=== PATIENT | male | born 1960 | race Caucasian/White ===

== ENCOUNTER 2017-06-06 18:46 | Inpatient (IN) | payer OTHER ==
[2017-06-06] MEDS ORDERED: HEPARIN 10,000 UNIT/10 ML MDV (1,000 UNIT/ML) IVP ONE (19:20)
[2017-06-06] MEDS ORDERED: HEPARIN/DEXTROSE 500 ML IV ONE (19:20)
--- NOTE | 2017-06-06 19:25 | EDPHY ---
H & P Stated Complaint: States +DVT in L leg; US done today HPI/ROS: Chief complaint: Left leg DVT History of present illness: This is a 56-year-old male who was sent to the emergency department by his primary care doctor for a left leg DVT. Patient has had soreness the last few days. However discomfort in the left leg significantly worsened today and he developed swelling in the leg. Ultrasound was obtained by his doctor which showed an extensive DVT that might be amenable to IR thrombolytic intervention. He was sent here for admission. On my evaluation he is feeling better, he feels like the pain in the leg and the swelling has decreased. He denies other associated signs or symptoms including no fevers, no cough, no trouble breathing, no chest pain. He denies precipitating factors for the blood clot. Review of systems: A 10 point review of systems was obtained and other than described above was negative - Personal History Current Tetanus Diphtheria and Acellular Pertussis (TDAP): Yes - Medical/Surgical History Hx Cardiac Disease: Yes Other PMH: afib. PUD in past - Social History Smoking Status: Never smoked - Physical Exam Exam: General Appearance: Alert, no distress. Eyes: Pupils equal and round no pallor or injection. ENT, Mouth: Mucous membranes moist. Respiratory: There are no retractions, lungs are clear to auscultation. Cardiovascular: Regular rate and rhythm. DP and PT pulses 2+. Gastrointestinal: Abdomen is soft and non tender, no masses, bowel sounds normal. Neurological: Alert and oriented x4. Strength and sensation intact and symmetrical. Skin: Warm and dry, no rashes. Musculoskeletal: Minor edema left leg compared to the right. Psychiatric: Patient is oriented X 3, there is no agitation. Constitutional: Initial Vital Signs Temperature (C) 36.8 C 06/06/17 18:53 Heart Rate 77 06/06/17 18:53 Respiratory Rate 16 06/06/17 18:53 Blood Pressure 163/99 H 06/06/17 18:53 O2 Sat (%) 98 06/06/17 18:53 O2 Delivery Mode Room Air Allergies/Adverse Reactions: No Known Allergies Allergy (Unverified 06/06/17 18:58) Home Medications: Medication Instructions Recorded Omeprazole [Prilosec 20 mg] 20 mg PO DAILY 06/06/17 buPROPion XL [Wellbutrin Xl] 150 mg PO DAILY 06/06/17 Medical Decision Making - Diagnostics Imaging: Discussed imaging studies w/ call center support consultant Radiologist ED Course/Re-evaluation: Patient seen under the supervision of my secondary supervising physician Dr. Maribell Dietrich. Patient presents to the emergency department for a left leg DVT. His leg is neurovascularly intact. Blood studies are obtained, PTT is noted to be elevated for unclear reasons. I have talked with the hospitalist Dr. Kraft. He will admit the patient. He wants me to go ahead and start heparin. I have consulted with interventional radiology Dr. Allen Ignacio. She will see the patient in the morning and discuss if intervention is warranted, she is not sure it will need to be but will evaluate the patient. The plan has been discussed with the patient who voiced understanding and agreement with it. Differential Diagnosis: Included but not limited to superficial thrombophlebitis, DVT, pulmonary embolism - Data Points Laboratory Results: Laboratory Results 06/06/17 19:25 06/06/17 19:25 06/06/17 06/06/17 06/06/17 19:25 19:25 19:25 WBC 9.49 10^3/uL 10^3/uL (3.80-9.50) RBC 4.35 10^6/uL L 10^6/uL (4.40-6.38) Hgb 13.1 g/dL L g/dL (13.7-17.5) Hct 36.8 % L % (40.0-51.0) MCV 84.6 fL fL (81.5-99.8) MCH 30.1 pg pg (27.9-34.1) MCHC 35.6 g/dL g/dL (32.4-36.7) RDW 13.0 % % (11.5-15.2) Plt Count 204 10^3/uL 10^3/uL (150-400) MPV 8.7 fL fL (8.7-11.7) Neut % (Auto) 60.7 % % (39.3-74.2) Lymph % (Auto) 27.8 % % (15.0-45.0) [place] % (Auto) 6.5 % % (4.5-13.0) Eos % (Auto) 3.1 % % (0.6-7.6) Baso % (Auto) 0.6 % % (0.3-1.7) Nucleat RBC Rel Count 0.0 % % (0.0-0.2) Absolute Neuts (auto) 5.76 10^3/uL 10^3/uL (1.70-6.50) Absolute Lymphs (auto) 2.64 10^3/uL 10^3/uL (1.00-3.00) Absolute Monos (auto) 0.62 10^3/uL 10^3/uL (0.30-0.80) Absolute Eos (auto) 0.29 10^3/uL 10^3/uL (0.03-0.40) Absolute Basos (auto) 0.06 10^3/uL 10^3/uL (0.02-0.10) Absolute Nucleated RBC 0.00 10^3/uL 10^3/uL (0-0.01) Immature Gran % 1.3 % H % (0.0-1.1) Immature Gran # 0.12 10^3/uL H 10^3/uL (0.00-0.10) PT 13.3 SEC SEC (12.0-15.0) INR 0.99 (0.83-1.16) APTT 78.8 SEC H SEC (23.0-38.0) Sodium 138 mEq/L mEq/L (135-145) Potassium 4.0 mEq/L mEq/L (3.5-5.2) Chloride 105 mEq/L mEq/L (97-110) Carbon Dioxide 20 mEq/l L mEq/l (22-31) Anion Gap 13 mEq/L mEq/L (8-16) BUN 12 mg/dL mg/dL (7-23) Creatinine 0.8 mg/dL mg/dL (0.7-1.3) Estimated GFR > 60 Glucose 89 mg/dL mg/dL (70-100) Calcium 9.2 mg/dL mg/dL (8.5-10.4) Medications Given: Discontinued Medications Heparin Sodium (Porcine) (Heparin Injection) 0 unit IVP EDNOW ONE PRN Reason: Protocol Stop: 06/06/17 19:21 Last Admin: 06/06/17 21:14 Dose: 5,200 units Heparin Sodium (Porcine) (Heparin 50 Units/Ml (Premix)) 500 mls @ 0 mls/hr IV EDNOW ONE; Per Protocol PRN Reason: Protocol Stop: 06/06/17 19:21 Last Admin: 06/06/17 21:09 Dose: 500 mls Departure - Departure Disposition: [facility] Inpatient Acute Clinical Impression: DVT (deep venous thrombosis) Qualifiers: DVT location: lower extremity Affected thrombotic vein of extremity: unspecified vein of extremity Chronicity: acute Laterality: left Qualified Code( s): I82.402 - Acute embolism and thrombosis of unspecified deep veins of left lower extremity Condition: Good
[2017-06-06 19:31] LABS: PLATELET COUNT 204 10^3/uL (150-400)
[2017-06-06 19:54] LABS: INR 0.99 (0.83-1.16); PROTIME(PATIENT) 13.3 SEC (12.0-15.0)
[2017-06-06] MEDS ORDERED: ZOLPIDEM TARTRATE 5 MG TAB PO PRN (21:09)
[2017-06-06] MEDS ORDERED: ONDANSETRON DISINTEGRATING 4 MG TAB PO PRN (21:09)
[2017-06-06] MEDS ORDERED: LORazepam 0.5 MG TAB PO PRN (21:09)
[2017-06-06] MEDS ORDERED: HYDROCODONE/APAP 5/325 TAB PO PRN (21:09)
[2017-06-06] MEDS ORDERED: ACETAMINOPHEN 325 MG TAB PO PRN (21:09)
[2017-06-06] MEDS ORDERED: ALBUTEROL 60 PUFFS/8 GM MDI IH PRN (21:09)
[2017-06-06] MEDS ORDERED: ALBUTEROL 3 ML DEYVIAL IH PRN (21:09)
--- NOTE | 2017-06-06 22:14 | GHP ---
[f rep st] HISTORY AND PHYSICAL DATE OF ADMISSION: 06/06/2017 CHIEF COMPLAINT: Left leg swelling and pain and known DVT. HISTORY OF PRESENT ILLNESS: This is a 56-year-old male who 10 days ago went skiing without incident. 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 It persisted and became somewhat painful, and he went to his PCP, Dr. Marialuisa Erickson, who saw the swelling, ordered an ultrasound, and on ultrasound a DVT frank s been noted. During this 10-day interval and prior to it, he denies having shortness of breath, fever, dyspnea on exertion, or feeling weak, tired, or noting any palpitations or chest pain. He does note that for th e last 2-3 weeks he has had increased sinus drainage and having an increasing cough secondary to that , but the cough he feels is secondary to the sinus drainage and is not secondary to any deep lung iss ue. He reports he has had the sinus problem on and off for many years and thinks he should use a net i pot for the cough, but he has never seen an ENT or pulmonary physician. He has also never been louis gnosed with asthma, allergies. He does not smoke cigarettes and has no known pulmonary disease. Reg arding the DVT in his leg, he has no family history of a clotting disorder in his mother, father, or siblings. He also does not note any recent long car ride, plane travel, trauma to the leg, or surger y to the lower extremity. PAST MEDICAL HISTORY: Denies asthma, allergies, high blood pressure, diabetes. He does have the sin us drainage, which he has had on and off for many years, but it has never been diagnosed specifically . He does not note any seasonal variation in the problem. There is a history of persistent atrial f ibrillation greater than 10 years ago, and he is status post an ablation x2. The atrial fibrillation resolved, and he has not been on anticoagulation therapy since then. PAST SURGICAL HISTORY: He has had a hernia repair remotely and a tonsillectomy. He additionally had an ablation greater than 10 years ago secondary to persistent atrial fibrillation at the time. ALLERGIES: None. CURRENT MEDICATIONS: Omeprazole and bupropion XL. SOCIAL HISTORY: The gentleman is . Has 2 children. 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 Alcohol: He drinks 2-3 ounces of vodka a day, but notes that he can go several days without drinking without any adverse effects of shaking, weakness, and h as never had a problem stopping alcohol. Tobacco was none. FAMILY HISTORY: Negative. He has no history of coronary artery disease, bleeding disorder, or clott ing disorder. PHYSICAL EXAMINATION: GENERAL: This is a pleasant, alert gentleman. VITAL SIGNS: He has mild hype rtension initially. He has normal oxygenation at 98% on room air. He is afebrile and has a heart ra te in sinus rhythm on the monitor at 77. HEENT: His TMs are brown bilaterally. The tongue and bucca l mucosa are normal. Posterior oropharynx is clear without exudate, erythema, or swelling. Nasal pa ssages appear clear. Sinuses on palpation are nontender or swollen. NECK: Supple without signs of meningismus. LUNGS: Normal inspiratory excursion without splinting. No palpable chest wall tendern ess. Lungs are clear to percussion and auscultation. HEART: Singular S1 and physiologically split S2. No murmur, gallop, or rub. ABDOMEN: Normoactive bowel sounds. No masses, tenderness, organome kulwant. EXTREMITIES: Left lower extremity shows 1+ peripheral edema from approximately the ankle to t he mid and upper calf. The area is tender to deep palpation, but no palpable cord can be found. The re is no erythema or ascending lymphangitis or cellulitis. No nodes are noted in the left inguinal r egion. SKIN: Otherwise clear. LABORATORY: WBC is normal. Hemoglobin slightly low at 13.1. Coagulation shows a normal PT and INR, but his APTT is elevated at 78 and repeated 82.2. Chemistry panel is otherwise normal. Extremity venous study demonstrates there is an extensive occlusive deep venous thrombosis involving the left femoral vein, popliteal vein, and the paired posterior tibial and peroneal veins. The findings of his ultrasound were discussed with IR, and it was decided to review the matter in the morning. The discussion was with Dr. Brittney Ignacio. As thrombolytic therapy is not being considered, the gentleman will be admitted and placed on IV hepa rin. It remains to explain his elevated PTT as there appears to be no drug effect involved here. ASSESSMENT: 1. Left lower extremity extensive deep vein thrombosis without signs of a pulmonary embolus. Thromb olytic therapy is being contemplated, and IR will be consulted in the morning regarding the matter. In the meantime, he will be placed on a continuous heparin drip in light of the possibility of an int ervention being performed tomorrow. 2. History of atrial fibrillation and status post an ablation 10 years ago without history of any goodson bsequent rhythm disturbance. He notes that sometimes he can feel his heart pounding, but he does not believe it is irregular. In light of this history, I believe it is useful to place the gentleman on a apricot packer for the evening. It seems unlikely that he would have reverted to atrial fibrilla tion, and an episode of atrial fibrillation would not explain his left lower extremity deep vein thro mbosis per se. Despite that fact, it would be useful to have some period of monitoring to further ev aluate this matter. 3. An abnormal PTT. This finding cannot be explained. It is approximately twice normal and normall y could be elevated if he were taking oral anticoagulants, but he is not. Thus, I have no explanatio n for this, and perhaps hematology should be consulted as an outpatient if none can be found. 4. Cough with some sinus drainage. Recommended outpatient ENT for further evaluation. The gentleman will be admitted to observation status. Should thrombolytic therapy be necessary, then he can be changed to inpatient status. His code status is full. TIME: 50 minutes. /[id number]/MODL
--- NOTE | 2017-06-06 22:29 | CPEKG ---
Heart Rate: 67 RR Interval: 896 P-R Interval: 184 QRSD Interval: 90 QT Interval: 400 QTC Interval: 423 P [place]: 88 QRS [place]: 61 T Wave [place]: 41 EKG Severity - ABNORMAL ECG - EKG Impression: SINUS RHYTHM EKG Impression: MULTIPLE ATRIAL PREMATURE COMPLEXES Electronically Signed By: Debra Fields 07-Jun-2017 06:04:48
[2017-06-06] MEDS: buPROPion XL 150 MG TAB PO SCH (23:20)
[2017-06-07 03:13] LABS: PLATELET COUNT 204 10^3/uL (150-400)
[2017-06-07] MEDS: buPROPion XL 150 MG TAB PO SCH (07:47)
[2017-06-07] MEDS: PANTOPRAZOLE SODIUM 40 MG TAB PO SCH (07:47)
[2017-06-07] MEDS ORDERED: HEPARIN 10,000 UNIT/10 ML MDV (1,000 UNIT/ML) IVP PRN (11:05)
[2017-06-07] MEDS ORDERED: HEPARIN/DEXTROSE 500 ML IV SCH ×2 (11:15→18:30)
--- NOTE | 2017-06-07 12:43 | ASMTCMCOM ---
CM Note CM Note Notes: 56 year old male admitted for L leg DVT. He has a hx of Afib-Ablation 10 years ago. Given patient's age and abilities no discharge needs are anticipated. Date Signed: 06/07/2017 12:43 PM Electronically Signed By:Urvashi Salazar LCSW
[2017-06-07] MEDS ORDERED: FLUMAZENIL 0.5 MG/5 ML MDV IVP PRN (13:49)
[2017-06-07] MEDS ORDERED: fentaNYL 100 MCG/2 ML INJ IVP PRN ×2 (13:49→17:54)
[2017-06-07] MEDS ORDERED: NALOXONE HCL 0.4 MG/ML INJ IVP PRN ×2 (13:49→17:54)
[2017-06-07 14:24] LABS: INR 1.02 (0.83-1.16); PROTIME(PATIENT) 13.6 SEC (12.0-15.0)
--- NOTE | 2017-06-07 14:43 | PDPROPOC ---
Sedation Plan of Care Sedation Plan of Care: vital signs stable, mental status noted, patient educated of risks, benefits, alternatives, patient can tolerate sedation ASA Classification: ASA 2 Planned drugs: fentanyl Mallampati Score: Class 3 Mallampati Reference Image: Patient passed 3-3-2 rule?: Yes
--- NOTE | 2017-06-07 14:47 | SOAPPROG ---
SOAP Progress Note Assessment/Plan: Assessment: LLE DVT, which by US does not involve CFV. Valve likely preserved. This is concordant with mild clinical presentation. Plan: We discussed in detail his options. Systemic anticoagulation likely will provide equal benefit to aggressive management. However, patient would like to optimize his chances and proceed with catheter lysis. Risks explained. I also explained that exact % of benefit is unknown considering preservation of valve. Patient understands all information discussed. We will start lysis today. finish tomorrow. Patient should wear knee height medical grade compression stockings once discharged. 06/07/17 14:47 Subjective: visited with patient. symptoms have improved since he's been supine. Objective: Vital Signs Temp Pulse Resp BP Pulse Ox 36.7 C 74 18 118/73 98 06/07/17 07:48 06/07/17 07:48 06/07/17 07:48 06/07/17 07:48 06/07/17 07:48 Laboratory Results 06/07/17 03:00 06/07/17 03:00 06/06/17 06/07/17 06/08/17 05:59 05:59 05:59 Intake Total 200 Output Total 620 Balance -420 PT 13.6 SEC (12.0-15.0) 06/07/17 14:05 INR 1.02 (0.83-1.16) 06/07/17 14:05 LT calf slightly more swollen than right. No cellulitis/discoloration. No varicosities. pulses normal. Ultrasound reviewed ICD10 Worksheet Patient Problems: Problems Problem Status Onset DVT (deep venous thrombosis) Acute
--- NOTE | 2017-06-07 17:28 | HOSPPROG ---
Hospitalist Progress Note Assessment/Plan: * Extensive DVT -IV heparin -consult IR to consider catheter directed tpa -outpatient hypercoag work-up * Afib s/p ablation * Baseline elevated PTT -suggests possible anti-phospholipid abx syndrome -not clear how IV heparin monitored with PTT abnormality -suggest LMWH after TPA rather than IV heparin -consider inpatient hematology consult Subjective: leg swelling is better Objective: Vital Signs Temp Pulse Resp BP Pulse Ox 37.1 C 76 15 117/72 97 06/07/17 15:44 06/07/17 15:44 06/07/17 15:44 06/07/17 15:44 06/07/17 15:44 PT 13.6 SEC (12.0-15.0) 06/07/17 14:05 INR 1.02 (0.83-1.16) 06/07/17 14:05 us - extensive dvt Laboratory Tests 06/06/17 06/06/17 19:25 20:15 APTT 78.8 H 82.2 H d/w dr serrano - consider tpa - Physical Exam Constitutional: no apparent distress, appears nourished, not in pain Cardiovascular: regular rate and rhythym, no murmur, rub, or gallop Respiratory: no respiratory distress, no rales or rhonchi, clear to auscultation Gastrointestinal: normoactive bowel sounds, soft, non-tender abdomen, no palpable masses Skin: no rashes or abrasions, no fluctuance, no induration Neurologic: AAOx3, sensation intact bilaterally Psychiatric: interacting appropriately, not anxious, not encephalopathic, thought process linear ICD10 Worksheet Patient Problems: Problems Problem Status Onset DVT (deep venous thrombosis) Acute
[2017-06-07] MEDS ORDERED: fentaNYL 100 MCG/2 ML INJ ONE (17:52)
[2017-06-07] MEDS ORDERED: PROMETHAZINE HCL 25 MG/ML INJ IVP PRN (18:28)
[2017-06-07] MEDS ORDERED: ALTEPLASE 5 MG in NS 100 ML IV ONE (18:30)
--- NOTE | 2017-06-07 18:32 | PDRADPN ---
Radiology Procedure Note Date of Procedure: 06/07/17 Radiologist: Brittney Ignacio Anesthesia: IV Sedation (FENTANYL ONLY) Pre-op Diagnosis: LLE DVT Post-op Diagnosis: SAME Indication: SWELLING AND PAIN Procedure: VENOGRAM WITH LYSIS Finding(s): ACUTE CLOT IN SFV AND POP VEINS. LARGE COLLATERAL. CFV NOT INVOLVED. Inf/Abcess present in the surg proc area at time of surgery?: No Complications: NONE
[2017-06-07] MEDS ORDERED: IOPAMIDOL (ISOVUE-300) 100 ML BTL ONE (18:36)
[2017-06-07] MEDS: ONDANSETRON 4 MG/2 ML VIAL IVP PRN (19:12)
[2017-06-07] MEDS: ALTEPLASE 5 MG in NS 100 ML IV SCH (23:00)
[2017-06-08 06:38] LABS: PLATELET COUNT 197 10^3/uL (150-400)
[2017-06-08] MEDS: ALTEPLASE 5 MG in NS 100 ML IV SCH (08:15)
[2017-06-08] MEDS: buPROPion XL 150 MG TAB PO SCH (08:56)
[2017-06-08] MEDS: PANTOPRAZOLE SODIUM 40 MG TAB PO SCH (08:56)
[2017-06-08] MEDS ORDERED: IOPAMIDOL (ISOVUE-300) 100 ML BTL ONE ×2 (12:18→17:33)
--- NOTE | 2017-06-08 13:17 | GCON ---
[f rep st] CONSULTATION HEMATOLOGY CONSULTATION DATE OF CONSULTATION: 06/08/2017 REASON FOR CONSULTATION: Prolonged PTT in background of lower extremity DVT. HISTORY OF PRESENT ILLNESS: The patient is a pleasant 56-year-old gentleman who presented to the hospital with a chief complaint of left lower extremity swelling and pain. This began the morning of admission. He had no preceding trauma. He had been skiing approximately 10 days earlier, but had not had any significant incident at that time. He saw his primary care physician, Dr. Marialuisa Erickson. An ultrasound revealed a lower extremity DVT. He was admitted to the hospital for further management. He denies any family history of thrombosis. He denies any family medical history of bleeding disorders. The patient was noted to have a prolonged PTT on admission to the hospital. It has been confirmed that this was drawn prior to the administration of heparin. His PTT on admission was 78.8. This was associated with a normal PT, INR, and a normal fibrinogen level. The patient was started on heparin. He was seen by Interventional Radiology and has been treated with catheter-directed tPA, which will be completed in approximately 2 hours. He has been maintained on low-dose heparin which has been somewhat difficult to manage given his prolonged PTT, but is scheduled to be stopped. His most recent PTT level is 73.2. He has had significant improvement in his left lower extremity swelling and pain since the tPA was initiated. PAST MEDICAL HISTORY: 1. Gastroesophageal reflux disease. 2. Chronic sinus drainage with seasonal allergy. 3. History of atrial fibrillation, status post 2 separate ablations. Patient reports he was on warfarin anticoagulation, but has not been on this for approximately 10 years, ever since his most recent ablation therapy. PAST SURGICAL HISTORY: 1. Tonsillectomy. 2. [place] tooth extraction. 3. Inguinal hernia repair. 4. Arthroscopic knee surgery, all without abnormal bleeding or thrombosis. ALLERGIES: No known drug allergies. FAMILY MEDICAL HISTORY: As outlined above. SOCIAL HISTORY: The patient is . He has 2 children. 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 He drinks 2-3 ounces of vodka a day. He smokes recreational marijuana every other day. He does not use tobacco products. He does not use supplemental testosterone. REVIEW OF SYSTEMS: As outlined above. Additionally, denies chest pain, cough, exertional dyspnea, abdominal pain or bloating. Denies fevers or chills. Denies abnormal bleeding or bruising. He gives no history of abnormal bleeding or bruising. PHYSICAL EXAM: GENERAL: Patient is resting comfortably in bed, in no acute distress. HEENT: Pupils equal. Sclerae nonicteric. Conjunctivae normal. HEART: Regular without murmur. LUNGS: Clear bilaterally. ABDOMEN: Soft, nontender, nondistended with no organomegaly or mass. EXTREMITIES: His left lower extremity has a catheter in place. It is not significantly enlarged in comparison to right. No petechiae. No ecchymosis. NEUROLOGIC: Patient alert , oriented, and appropriate. Ultrasound of the lower extremities done June 07, 2017, reveals acute clot in the left SFV, not involving the common femoral vein. Venogram done on 06/07/2017, reveals the same. There is focal narrowing in the external iliac vein on final venography, which will be further interrogated by IR. Potentially, a CT is needed to rule out extrinsic compression. ADDITIONAL LABORATORY STUDIES: White count 9.3, hemoglobin 12.6, platelet count 197,000. BUN 15, creatinine 0.9, calcium 9.0. IMPRESSION: 1. Unprovoked left lower extremity deep vein thrombosis. 2. Prolonged PTT. 3. Nonspecific focal narrowing of external iliac vein noted on venography. PLAN: The patient is a pleasant 56-year-old gentleman who presents with an unprovoked DVT and a prolonged PTT. There is no family history or personal history of thrombosis or bleeding disorders. I suspect that the patient may have antiphospholipid antibody syndrome. His case was discussed with Dr. Pearson of the hospitalist service. We will send anticardiolipin and anti beta-2 glycoprotein antibodies. I suggest using factor Xa levels to monitor his heparin. Evidently, his low-dose heparin will be discontinued in approximately 2 hours. At that point, I recommend switching him to Lovenox 1 mg/kg twice daily. He will be started on concurrent warfarin 5 mg daily. His Lovenox can be discontinued once his warfarin is therapeutic (INR of 2-3). I have also sent testing for the factor V Leiden mutation, prothrombin gene mutation. Our office will see him in followup once he is discharged. He lives in [place] and thus, I will arrange for him to see one of my partners in [place]. Determination as to the final duration of anticoagulation will be made at that time. If the focal narrowing in his external iliac vein is still seen on followup venography, certainly, a CT pelvis would be potentially appropriate to rule out any extrinsic compression as a contributing factor to his thrombosis. The patient's questions were answered. Total time for today's visit was approximately 45 minutes of which greater than 50% was spent in counseling, care coordination. /[id number]/MODL MTDD
--- NOTE | 2017-06-08 16:37 | HOSPPROG ---
Hospitalist Progress Note Assessment/Plan: * Extensive DVT -catheter directed tpa by IR -start Lovenox/warfarin when tpa complete * Afib s/p ablation - NSR * Baseline elevated PTT -standard IV heparin protocol uses Anti-Factor Xa levels - okay -cannot monitor IV heparin with PTT * Hypercoagulable state -anti-cardiolipin abx pending -elevated PTT suggests probable anti-phospholipid abx syndrome -d/w Dr. Kohli - hematology consult Subjective: No complaints, anxious for discharge Objective: Vital Signs Temp Pulse Resp BP Pulse Ox 37.1 C 82 14 114/69 90 L 06/08/17 14:00 06/08/17 14:00 06/08/17 14:00 06/08/17 14:00 06/08/17 14:00 Laboratory Results 06/08/17 06:00 06/08/17 06:00 06/07/17 06/08/17 06/09/17 05:59 05:59 05:59 Intake Total 400 Output Total 700 Balance -300 PT 13.6 SEC (12.0-15.0) 06/07/17 14:05 INR 1.02 (0.83-1.16) 06/07/17 14:05 tele reviewed - mostly NSR with PAC - Physical Exam Constitutional: no apparent distress, appears nourished, not in pain Cardiovascular: regular rate and rhythym, no murmur, rub, or gallop Respiratory: no respiratory distress, no rales or rhonchi, clear to auscultation Gastrointestinal: normoactive bowel sounds, soft, non-tender abdomen, no palpable masses Skin: no rashes or abrasions, no fluctuance, no induration Neurologic: AAOx3, sensation intact bilaterally Psychiatric: interacting appropriately, not anxious, not encephalopathic, thought process linear ICD10 Worksheet Patient Problems: Problems Problem Status Onset DVT (deep venous thrombosis) Acute
[2017-06-08] MEDS ORDERED: NALOXONE HCL 0.4 MG/ML INJ IVP PRN (16:38)
[2017-06-08] MEDS ORDERED: FLUMAZENIL 0.5 MG/5 ML MDV IVP PRN (16:38)
[2017-06-08] MEDS ORDERED: HEPARIN 10,000 UNIT/10 ML MDV (1,000 UNIT/ML) IVP PRN ×2 (16:38→21:29)
[2017-06-08] MEDS ORDERED: MIDAZOLAM 2 MG/2 ML VIAL IVP PRN (16:38)
[2017-06-08] MEDS ORDERED: ALTEPLASE 2 MG VIAL IVP PRN (16:38)
[2017-06-08] MEDS ORDERED: GLUCAGON HCL 1 MG VIAL IVP PRN (16:38)
[2017-06-08] MEDS ORDERED: PROTAMINE SULFATE 50 MG/5 ML VIAL IVP PRN (16:38)
[2017-06-08] MEDS ORDERED: MEPERIDINE 25 MG/ML SYR IVP PRN (16:38)
[2017-06-08] MEDS ORDERED: fentaNYL 100 MCG/2 ML INJ IVP PRN (16:38)
[2017-06-08 17:08] LABS: PLATELET COUNT 179 10^3/uL (150-400)
[2017-06-08] MEDS: ONDANSETRON 4 MG/2 ML VIAL IVP PRN (17:11)
--- NOTE | 2017-06-08 20:59 | PDRADPN ---
Radiology Procedure Note Date of Procedure: 06/08/17 Radiologist: Preston Rodriguez Pre-op Diagnosis: LLE DVT Post-op Diagnosis: Same Indication: LLE DVT Procedure: Venography and venoplasty Finding(s): Following overnight lysis, there is moderate reduction in clot burden, much of which appears chronic, with little antegrade flow. The SFV appears small. SFV balloon dilated to 6 mm with improvement in luminal diameter but only slight improvement in antegrade flow. Focus of contrast extravasation along the mid SFV, unlikely to be of clinical significance. Overall, findings consisent with acute on chronic DVT. Inf/Abcess present in the surg proc area at time of surgery?: No EBL: Minimal Complications: No immediate.
[2017-06-08] MEDS ORDERED: ENOXAPARIN 100 MG/ML SYR SC SCH (21:00)
--- NOTE | 2017-06-08 21:01 | PDPROPOC ---
Sedation Plan of Care Sedation Plan of Care: vital signs stable, mental status noted, patient educated of risks, benefits, alternatives, patient can tolerate sedation ASA Classification: ASA 2 Planned drugs: fentanyl, midazolam Mallampati Score: Class 3 Mallampati Reference Image: Patient passed 3-3-2 rule?: Yes
[2017-06-08] MEDS ORDERED: HEPARIN/DEXTROSE 500 ML IV SCH (21:30)
[2017-06-08 22:30] VITALS: RESP 18
[2017-06-09 05:30] LABS: PLATELET COUNT 172 10^3/uL (150-400)
[2017-06-09 09:10] VITALS: PULSE 79; O2SAT 96
[2017-06-09 10:11] VITALS: BP 133/70
[2017-06-09 10:12] VITALS: TEMP 98.1
[2017-06-09] MEDS: PANTOPRAZOLE SODIUM 40 MG TAB PO SCH (10:16)
[2017-06-09] MEDS: buPROPion XL 150 MG TAB PO SCH (10:16)
[2017-06-09] MEDS ORDERED: ENOXAPARIN 80 MG/0.8 ML SYR SC SCH (11:15)
[2017-06-09] MEDS ORDERED: WARFARIN SODIUM 5 MG TAB PO SCH (16:00)
--- NOTE | 2017-06-09 17:43 | SOAPPROG ---
[facility] Progress Note Assessment/Plan: Assessment: 56 yo M w h/o unprovoked LLE DVT s/p catheter-directed thrombolysis POD# 1 and suspected antiphospholipid syndrome. LLE DVT- [place] to be acute on chinic. Marked reduction in Lt SFV clot burden following lysis and plasty. LLE swelling slightly decreased. Will require anticoagulation, possibly for life is APLS is confirmed. Recommend 20-30 compression stockings. Ok to D/C from IR standpoint. APLS- Workup per heme. 06/09/17 23:36 06/09/17 23:46 Subjective: Pt seen and examined this am. Feeling better today now that catheter has been removed. Anxious to leave. Mild LLE pain which has improved. No other complaints. Objective: Vital Signs Temp Pulse Resp BP Pulse Ox 36.7 C 79 18 133/70 H 96 06/09/17 10:00 06/09/17 08:00 06/09/17 08:00 06/09/17 10:00 06/09/17 08:00 Laboratory Results 06/09/17 05:05 06/09/17 05:05 06/08/17 06/09/17 06/10/17 05:59 05:59 05:59 Intake Total 400 700 450 Output Total 700 1550 Balance -300 -850 450 PT 13.6 SEC (12.0-15.0) 06/07/17 14:05 INR 1.02 (0.83-1.16) 06/07/17 14:05 Gen: NAD HEENT: Normocephalic, atraumatic, anicteric, OP clear Heart: RRR Resp: Normal effort Abd: NTND MSK: Mimimal LLE swelling, no pitting, Lt popliteal dressing is CDI Pulses: 2+ radial DP ICD10 Worksheet Patient Problems: Problems Problem Status Onset DVT (deep venous thrombosis) Acute
--- NOTE | 2017-06-09 19:43 | GDS ---
[f rep st] DISCHARGE SUMMARY DISCHARGE DIAGNOSES: 1. Extensive left leg deep venous thrombosis, status post catheter directed tPA. 2. Atrial fibrillation, status post ablation. 3. Hypercoagulable state. 4. Baseline elevated PTT. 5. Suspected antiphospholipid antibody syndrome. HISTORY: Patient is a 56-year-old male, who presented with a large left leg DVT. He was admitted to ICU and had a catheter directed tPA by Interventional Radiology. Once this was completed, he was st arted on Lovenox and will transition to warfarin for chronic therapy. Interestingly, his baseline PTT prior to initiating any anticoagulation was quite elevated consistent with a possible antiphospholipid antibody syndrome. We were able to use our IV heparin protocol bec ause antifactor Xa levels are followed rather than the PTT. Anticardiolipin antibody is pending as w ell as a complete hypercoagulable profile as best as can be ordered after anticoagulation has already been initiated. Dr. Kohli saw him here in consultation and recommends outpatient followup with He matology. Patient was counseled that if antiphospholipid antibody is confirmed, he may need lifelong anticoagulation. DISCHARGE MEDICATIONS: Please see computerized record for full detailed list. NEW MEDICATIONS: 1. Lovenox 80 mg subcu twice daily until INR is greater than 2. 2. Warfarin 5 mg p.o. daily. ADDITIONAL DISCHARGE INSTRUCTIONS: 1. Recommend INR check on Tuesday with Dr. Mccrary. 2. Follow up with Hematology regarding possible antiphospholipid antibody syndrome. Greater than 30 minutes' time was spent arranging this discharge. Patient seen and examined by me on the day of discharge. /[id number]/MODL
== END 2017-06-09 11:55 | disposition home or self-care (01) | DRG 253 ==
LOC: INTOOBSV 19:31 → F2N 22:10 → OBSVTOIN 06-07 14:21
PROVIDERS: ADMIT Internal Medicine Pulmonary Disease; ATTEND Internal Medicine
PROC: B51C1ZZ Fluoroscopy of Left Lower Extremity Veins using Low Osmolar Contrast (ICD-10-PCS; principal; 2017-06-07)
PROC: 3E03317 Introduction of Other Thrombolytic into Peripheral Vein, Percutaneous Approach (ICD-10-PCS; principal; 2017-06-07)
PROC: 06HY33Z Insertion of Infusion Device into Lower Vein, Percutaneous Approach (ICD-10-PCS; principal; 2017-06-07)
PROC: B54CZZA Ultrasonography of Left Lower Extremity Veins, Guidance (ICD-10-PCS; principal; 2017-06-07)
PROC: B51C1ZA Fluoroscopy of Left Lower Extremity Veins using Low Osmolar Contrast, Guidance (ICD-10-PCS; 2017-06-08)
PROC: 067N3ZZ Dilation of Left Femoral Vein, Percutaneous Approach (ICD-10-PCS; 2017-06-08)
PROC: 06PYX3Z Removal of Infusion Device from Lower Vein, External Approach (ICD-10-PCS; 2017-06-08)
DX: I82.412 Acute embolism and thrombosis of left femoral vein (principal); I82.432 Acute embolism and thrombosis of left popliteal vein; I82.442 Acute embolism and thrombosis of left tibial vein; I82.492 Acute embolism and thrombosis of other specified deep vein of left lower extremity; D68.61 Antiphospholipid syndrome; I48.91 Unspecified atrial fibrillation; R05 Cough; J34.89 Other specified disorders of nose and nasal sinuses
CPT/HCPCS: 85240-90; 85250-90; 85260-90; 85520-90; 85597-90; 85670-90; 86147-90; C1725; C1757; C1758; C1769; C1894; G0378; J1644; J1650; J2250; J2270; J2405; J2997; J3010; Q9967

== ENCOUNTER → 2017-06-06 | Outpatient (CLI) | payer OTHER | LOC: CIMAGING 16:59 | PROVIDERS: ATTEND Internal Medicine | DX: I82.4Z2 Acute embolism and thrombosis of unspecified deep veins of left distal lower extremity (principal) | CPT/HCPCS: 93971-PO ==